=== PATIENT | male | born 1955 | race Two or more races ===

== ENCOUNTER 2016-12-21 08:45 | Inpatient (IN) | payer MEDICAID ==
[~2016-12-21] VITALS: Ht 167.6 cm; Wt 104.3 kg
[2016-12-21] MEDS ORDERED: ASPIRIN 81 MG TAB.CHEW PO ONE (09:00)
[2016-12-21] MEDS ORDERED: NITROGLYCERIN PACKET 1 GM PACKET TD ONE (09:00)
[2016-12-21] MEDS ORDERED: NITROGLYCERIN PACKET 1 GM PACKET ONE (09:01)
[2016-12-21] MEDS ORDERED: ASPIRIN 81 MG TAB.CHEW ONE (09:01)
[2016-12-21 09:17] LABS: BASOPHILS % (AUTO) 0.3 % (0.0-2.0); EOSINOPHILS # (AUTO) 0.6 /CMM (0.0-0.7); EOSINOPHILS % (AUTO) 6.1 % (0.0-6.0); HEMATOCRIT 40 % (39-51); HEMOGLOBIN 13.6 g/dL (13.5-17.5); LYMPHOCYTES # (AUTO) 2.6 /CMM (0.8-4.8); LYMPHOCYTES % (AUTO) 26.9 % (20.0-44.0); MEAN CORPUSCULAR HEMOGLOBIN 30 PG (26.0-33.0); MEAN CORPUSCULAR HGB CONC 34 g/dl (31.0-36.0); MEAN CORPUSCULAR VOLUME 90 fL (80-96); MONOCYTES # (AUTO) 0.6 /CMM (0.1-1.30); NEUTROPHILS # (AUTO) 5.8 /CMM (1.8-8.9); NEUTROPHILS % (AUTO) 60.7 % (43.0-81.0); PLATELET COUNT (AUTO) 313 /CMM (150-450); RDW COEFFICIENT OF VARIATION 13.1 (11.5-15.0); RED BLOOD CELL COUNT(AUTO) 4.48 MIL/uL (4.5-6.0); WHITE BLOOD COUNT (AUTO) 9.6 K/uL (4.3-11.0)
[2016-12-21] MEDS ORDERED: CLON0.1T PO (09:20)
[2016-12-21] MEDS ORDERED: SITA50TA PO (09:20)
[2016-12-21] MEDS ORDERED: GLIP10TA11 PO (09:20)
[2016-12-21] MEDS ORDERED: CITA10TA9 PO (09:20)
[2016-12-21] MEDS ORDERED: ZOLP5TAB2 PO (09:20)
[2016-12-21] MEDS ORDERED: MECL-102 PO (09:20)
[2016-12-21] MEDS ORDERED: VALS1TAB6 PO (09:20)
[2016-12-21] MEDS ORDERED: GABA600T2 PO (09:20)
[2016-12-21] MEDS ORDERED: TRAM50TA2 PO (09:20)
[2016-12-21] MEDS ORDERED: SUMA100T PO (09:20)
[2016-12-21 09:27] LABS: CALCIUM, SERUM 8.8 mg/dL (8.5-10.1); CREATININE 0.9 mg/dL (0.6-1.3); POTASSIUM 4.1 mmol/L (3.5-5.1)
[2016-12-21 09:30] LABS: INR 0.94 (0.87-1.13)
[2016-12-21 09:33] LABS: BILIRUBIN,TOTAL 0.2 mg/dL (0.2-1.0); TOTAL PROTEIN, SERUM 8.1 g/dL (6.4-8.2)
[2016-12-21 10:30] VITALS: BP 136/75
[2016-12-21] MEDS ORDERED: Z GUARD REMEDY 2 OZ OINT TP PRN (10:30)
[2016-12-21] MEDS ORDERED: HYDROCODONE/APAP 5/325MG 1 EACH TABLET PO PRN (10:30)
[2016-12-21] MEDS ORDERED: TRAMADOL HCL 50 MG TABLET PO PRN (10:30)
[2016-12-21] MEDS ORDERED: ACETAMINOPHEN 325 MG TABLET PO PRN (10:30)
[2016-12-21] MEDS ORDERED: MAGNESIUM HYDROXIDE 30 ML UDC PO PRN (10:30)
[2016-12-21] MEDS ORDERED: MECLIZINE HCL 25 MG TABLET PO PRN (10:30)
[2016-12-21] MEDS ORDERED: ZOLPIDEM TARTRATE 5 MG TABLET PO PRN (10:30)
[2016-12-21] MEDS ORDERED: MAG HYDROX/AL HYDROX/SIMETH 30 ML UDC PO PRN (10:30)
[2016-12-21] MEDS ORDERED: SUMATRIPTAN SUCCINATE 100 MG TABLET PO PRN (10:30)
[2016-12-21] MEDS ORDERED: ONDANSETRON HCL/PF 4 MG/2 ML VIAL IVP PRN (10:30)
[2016-12-21] MEDS ORDERED: DEXTROSE 50%-WATER 50 ML DISP.SYRIN IV PRN (11:00)
[2016-12-21] MEDS ORDERED: INSULIN REGULAR, HUMAN 100 UNIT/ML 3 ML VIAL SQ PRN (11:00)
[2016-12-21] MEDS ORDERED: *INSULIN REGULAR(HUMULIN R)HUM 100 UNIT/ML VIAL SQ PRN (11:00)
[2016-12-21] MEDS: BLOOD SUGAR DIAGNOSTIC 1 EACH STRIP VI SCH ×3 (12:00→21:20)
[2016-12-21] MEDS ORDERED: ALPRAZOLAM 0.25 MG TABLET PO PRN (14:30)
[2016-12-21] MEDS ORDERED: IV NS 0.9% 1,000 ML IV PRN (14:30)
[2016-12-21] MEDS: IV NS 0.9% 1,000 ML IV PRN (14:47)
[2016-12-21 16:00] VITALS: BP 111/55
[2016-12-21] MEDS: glipiZIDE 10 MG TABLET PO SCH (17:08)
[2016-12-21] MEDS: GABAPENTIN 300 MG CAPSULE PO SCH (17:08)
[2016-12-21 20:00] VITALS: BP 144/70
[2016-12-21 20:07] VITALS: BP 144/70
[2016-12-22] VITALS (7 sets, daily range): BP systolic 116–154; BP diastolic 60–89
[2016-12-22] MEDS: BLOOD SUGAR DIAGNOSTIC 1 EACH STRIP VI SCH ×2 (06:25→14:13)
[2016-12-22] MEDS: IV NS 0.9% 1,000 ML IV PRN (06:55)
[2016-12-22 06:57] LABS: BASOPHILS % (AUTO) 0.4 % (0.0-2.0); EOSINOPHILS # (AUTO) 0.5 /CMM (0.0-0.7); EOSINOPHILS % (AUTO) 5.7 % (0.0-6.0); HEMATOCRIT 38 % (39-51); HEMOGLOBIN 12.8 g/dL (13.5-17.5); LYMPHOCYTES # (AUTO) 3.1 /CMM (0.8-4.8); LYMPHOCYTES % (AUTO) 32.3 % (20.0-44.0); MEAN CORPUSCULAR HEMOGLOBIN 31 PG (26.0-33.0); MEAN CORPUSCULAR HGB CONC 34 g/dl (31.0-36.0); MEAN CORPUSCULAR VOLUME 90 fL (80-96); MONOCYTES # (AUTO) 0.6 /CMM (0.1-1.30); MONOCYTES % (AUTO) 6.3 % (2.0-12.0); NEUTROPHILS # (AUTO) 5.3 /CMM (1.8-8.9); NEUTROPHILS % (AUTO) 55.3 % (43.0-81.0); PLATELET COUNT (AUTO) 266 /CMM (150-450); RED BLOOD CELL COUNT(AUTO) 4.15 MIL/uL (4.5-6.0); WHITE BLOOD COUNT (AUTO) 9.5 K/uL (4.3-11.0)
[2016-12-22 07:19] LABS: CALCIUM, SERUM 8.3 mg/dL (8.5-10.1); CREATININE 0.8 mg/dL (0.6-1.3); MAGNESIUM 2.1 mg/dL (1.8-2.4); PHOSPHORUS 4.2 mg/dL (2.5-4.9); POTASSIUM 4.5 mmol/L (3.5-5.1)
[2016-12-22] MEDS ORDERED: PANTOPRAZOLE 40 MG TABLET.DR PO SCH (07:30)
[2016-12-22] MEDS ORDERED: ASPIRIN 81 MG TAB.CHEW PO SCH (09:00)
[2016-12-22] MEDS ORDERED: SITAGLIPTIN PHOSPHATE 50 MG TABLET PO SCH (09:00)
[2016-12-22] MEDS ORDERED: HYDROCHLOROTHIAZIDE 25 MG TABLET PO SCH (09:00)
[2016-12-22] MEDS ORDERED: LINAGLIPTIN 5 MG TABLET PO SCH (09:00)
[2016-12-22] MEDS ORDERED: VALSARTAN 80 MG TABLET PO SCH (09:00)
[2016-12-22] MEDS ORDERED: CLONIDINE HCL 0.1 MG TABLET PO SCH (09:00)
[2016-12-22] MEDS ORDERED: ATOR10TA PO (14:04)
[2016-12-22] MEDS ORDERED: CLON0.1T14 PO (14:04)
[2016-12-22] MEDS ORDERED: GABA300C PO (14:04)
[2016-12-22] MEDS ORDERED: ASPI81TA2 PO (14:04)
[2016-12-22] MEDS ORDERED: LINA5TAB PO (14:04)
[2016-12-22] MEDS: GABAPENTIN 300 MG CAPSULE PO SCH (14:11)
[2016-12-22] MEDS: glipiZIDE 10 MG TABLET PO SCH (14:12)
[2016-12-22] MEDS ORDERED: ATORVASTATIN 10 MG TABLET PO SCH (22:00)
== END 2016-12-22 15:45 | disposition home or self-care (01) | DRG 241 ==
LOC: ER 08:46 → TELE 10:07
PROVIDERS: ADMIT Internal Medicine; ATTEND Internal Medicine
DX: K29.70 Gastritis, unspecified, without bleeding (principal); I10 Essential (primary) hypertension; K21.9 Gastro-esophageal reflux disease without esophagitis; E11.9 Type 2 diabetes mellitus without complications; E78.5 Hyperlipidemia, unspecified; Z98.890 Other specified postprocedural states; E66.9 Obesity, unspecified; F40.240 Claustrophobia; G89.29 Other chronic pain; Z79.84 Long term (current) use of oral hypoglycemic drugs; Z79.899 Other long term (current) drug therapy; Z82.49 Family history of ischemic heart disease and other diseases of the circulatory system; Z87.891 Personal history of nicotine dependence; Z68.37 Body mass index [BMI] 37.0-37.9, adult
CPT/HCPCS: 36415; 71010-TC; 80048-TC; 80053-TC; 80061-TC; 82962-TC; 83690-TC; 83735-TC; 84100-TC; 84484-TC; 85025-TC; 85730-TC; 93307-TC; A4606; A9502; J1815; J7030; J7042; Z7610

== ENCOUNTER 2022-07-18 16:57 | Emergency (ER) | payer MEDICARE, OTHER ==
[~2022-07-18] VITALS: Ht 167.6 cm; Wt 94.3 kg
[~2022-07-18 16:57] MED LIST: ASPI-1169 PO; ATOR10TA PO; CLON0.1T14 PO; GABA300C PO; LINA5TAB PO
[2022-07-18 17:04] VITALS: BP 177/77
--- NOTE | 2022-07-18 17:11 | NUR ---
CHEVY ([employer]) [phone].
--- NOTE | 2022-07-18 17:25 | NUR ---
IV ACCESS ON R AC #20 G
[2022-07-18 18:04] LABS: BASOPHILS % (AUTO) 0.4 % (0.0-2.0); HEMATOCRIT 40 % (39-51); HEMOGLOBIN 12.8 g/dL (13.5-17.5); LYMPHOCYTES # (AUTO) 1.7 K/uL (0.8-4.8); LYMPHOCYTES % (AUTO) 14.5 % (20.0-44.0); MEAN CORPUSCULAR HGB CONC 32 g/dl (31.0-36.0); MEAN CORPUSCULAR VOLUME 91 fL (80-96); MONOCYTES # (AUTO) 0.6 K/uL (0.1-1.30); MONOCYTES % (AUTO) 5.3 % (2.0-12.0); NEUTROPHILS # (AUTO) 9.2 K/uL (1.8-8.9); NEUTROPHILS % (AUTO) 78.8 % (43.0-81.0); PLATELET COUNT (AUTO) 338 K/uL (150-450); RED BLOOD CELL COUNT(AUTO) 4.38 MIL/uL (4.5-6.0); WHITE BLOOD COUNT (AUTO) 11.7 K/uL (4.3-11.0)
[2022-07-18 18:18] LABS: CREATININE 0.8 mg/dL (0.6-1.3); POTASSIUM 4.2 mmol/L (3.5-5.1)
[2022-07-18 18:26] LABS: ALBUMIN 4.3 g/dL (3.4-5.0); BILIRUBIN,DIRECT 0.1 mg/dL (0.0-0.2); BILIRUBIN,TOTAL 0.3 mg/dL (0.2-1.0); TOTAL PROTEIN, SERUM 8.4 g/dL (6.4-8.2)
--- NOTE | 2022-07-18 18:31 | NUR ---
PCP CALLED AND WANTS TO SPEAK TO ORLANDO HUSSEIN
[2022-07-18] MEDS ORDERED: NA P133E RC (19:24)
[2022-07-18] MEDS ORDERED: POLY17PO4 PO (19:24)
--- NOTE | 2022-07-18 19:30 | NUR ---
Patient discharged to home in stable condition. Written and verbal after care instructions given. Patient verbalizes understanding of instruction. IV removed. Catheter intact and site benign. Pressure and 4x4 applied to site. No bleeding noted.
== END 2022-07-18 19:35 | disposition home or self-care (01) ==
LOC: ER 17:11
DX: K59.00 Constipation, unspecified (principal); I10 Essential (primary) hypertension; E11.9 Type 2 diabetes mellitus without complications; F17.200 Nicotine dependence, unspecified, uncomplicated; Z79.899 Other long term (current) drug therapy
CPT/HCPCS: 36415; 80048-TC; 80076-TC; 83690-TC; 85025-TC